=== PATIENT | female | born 1960 ===

== ENCOUNTER 2018-08-29 06:30 | Observation (INO) | payer OTHER ==
[2018-08-29 08:27] VITALS: BMI 28.3
[2018-08-29] MEDS ORDERED: Lactated Ringer's 1,000 ML IV ONE ×4 (08:52→18:31)
[2018-08-29] MEDS ORDERED: Propofol 10 mg/ml Inj (20 ML) ONE ×2 (14:47→17:23)
[2018-08-29] MEDS ORDERED: Succinylcholine Chloride 20 mg/ml Syr (5 ml) IV ONE (14:47)
[2018-08-29] MEDS ORDERED: Lidocaine 4% (Laryng-O-Jet) Kit MM ONE (14:48)
[2018-08-29] MEDS ORDERED: Absorbable Gelatin Sponge Size 12-7 ONE (14:49)
[2018-08-29] MEDS ORDERED: Lidocaine 1% Inj (20ml) ONE (14:49)
[2018-08-29] MEDS ORDERED: MethylPREDNISolone Depo 40 mg/ml Inj ONE (14:49)
[2018-08-29] MEDS ORDERED: Thrombin Topical 5,000 Int Units Spray Kit ONE (14:50)
[2018-08-29] MEDS ORDERED: Midazolam 2 MG/2 ML VIAL ONE (14:58)
[2018-08-29] MEDS ORDERED: Remifentanil 2 MG PDS IV ONE (14:58)
[2018-08-29] MEDS ORDERED: Tranexamic Acid 1,000 MG in Sodium Chloride 0.9% 100 ML IVPB ONE (16:30)
[2018-08-29] MEDS ORDERED: Dexamethasone 4 mg/1 ml ONE (17:31)
[2018-08-29] MEDS ORDERED: Vancomycin 1 g Inj IVPB ONE (18:45)
[2018-08-29] MEDS ORDERED: Liquid Adhesive TOP ONE ×2 (20:01→20:48)
[2018-08-29] MEDS ORDERED: cefTRIAXone (Rocephin) 1 gm Inj ONE (20:07)
[2018-08-29] MEDS ORDERED: cefTRIAXone (Rocephin) 1 gm Inj IVPB ONE (20:35)
[2018-08-29] MEDS ORDERED: HYDROmorphone 0.5 mg/0.5 ml ISec IVP PRN (21:14)
[2018-08-29] MEDS ORDERED: HYDROmorphone 0.5 mg/0.5 ml ISec ONE (21:14)
[2018-08-29] MEDS ORDERED: Dexamethasone 4 mg/1 ml IVP PRN (21:14)
[2018-08-29] MEDS ORDERED: Lactated Ringer's 1,000 ML IV SCH (21:15)
[2018-08-29] MEDS ORDERED: Oxycodone/Acetaminophen 5/325 mg Tab PO PRN (22:06)
--- NOTE | 2018-08-29 23:45 | CP.PCM.HP ---
History of Present Illness - History of Present Illness History of Present Illness: Orthopedist: Dr Marino Chief complaint: SOB/chest and back pain The patient was seen and examined in the Medical unit post surgery HPI: This is a 58 years old female with hx of HTN who came for an elective cervical disc surgery. She referred having pain to the back of the neck with numbness radiating down the right hand and the back. She referred that the MRI of the neck showed degenerative cervical disc disease. The surgery done was C4-5, C5-6; C6-7 anterior Discectomy and fusion. PMH: HTN; Back pain; Neck pain PSH: Cesarian section; Right shoulder surgery;Right Tibia ORIF SH: Never Smoked; No illegal drug use; No ETOH; FH: States: no family rodriguez Allergies: NKDA Medication: Gabapentin; [place]; Cyclobenzoprin Present on Admission - Present on Admission Any Indicators Present on Admission: No History of DVT/PE: No History of Uncontrolled Diabetes: No Urinary Catheter: No Decubitus Ulcer Present: No Review of Systems - Constitutional Constitutional: Headache. absent: Anorexia, Chills, Fatigue, Fever, Snoring - EENT Eyes: Spots in Vision, Other Visual Disturbances, Other. absent: Blurred Vision, Decreased Night Vision, Diplopia, Dry Eye, Pain Nose/Mouth/Throat: absent: Epistaxis, Nasal Congestion, Nasal Discharge, Sinus Pain, Sinus Pressure - Cardiovascular Cardiovascular: Chest Pain, Dyspnea. absent: Edema, Leg Edema - Respiratory Respiratory: Dyspnea. absent: Cough, Wheezing, Stridor - Gastrointestinal Gastrointestinal: absent: Constipation, Diarrhea, Nausea, Vomiting - Genitourinary Genitourinary: absent: Dysuria, Flank Pain, Urinary Frequency - Musculoskeletal Musculoskeletal: Back Pain, Neck Pain - Integumentary Integumentary: Pruritus, Rash, Skin Ulcer, Sores, Striae, Swelling - Neurological Neurological: Weakness. absent: Confusion, Dizziness, Headaches - Psychiatric Psychiatric: absent: Anxiety, Depression, Difficulty Concentrating, Panic Attacks, Other - Endocrine Endocrine: absent: Palpitations, Polydipsia, Polyphagia, Polyuria - Hematologic/Lymphatic Hematologic: absent: Easy Bleeding, Easy Bruising Past Patient History - Past Medical History & Family History Past Medical History?: Yes - Past Social History Smoking Status: Never Smoked Chewing Tobacco Use: No Cigar Use: No Alcohol: None Drugs: Denies Home Situation {Lives}: With Family - CARDIAC Hx Cardiac Disorders: Yes Hx Hypertension: Yes - PULMONARY Hx Respiratory Disorders: No - NEUROLOGICAL Hx Neurological Disorder: No - HEENT Hx HEENT Problems: No - RENAL Hx Chronic Kidney Disease: No - ENDOCRINE/METABOLIC Hx Endocrine Disorders: No - HEMATOLOGICAL/ONCOLOGICAL Hx Blood Disorders: No - INTEGUMENTARY Hx Dermatological Problems: No - MUSCULOSKELETAL/RHEUMATOLOGICAL Hx Musculoskeletal Disorders: Yes Hx Back Pain: Yes Other/Comment: NECK PAIN - GASTROINTESTINAL Hx Gastrointestinal Disorders: No - GENITOURINARY/GYNECOLOGICAL Hx Genitourinary Disorders: No - PSYCHIATRIC Hx Emotional Abuse: No Hx Physical Abuse: No - SURGICAL HISTORY Hx Surgeries: Yes Other/Comment: [id number];RIGHT SHOULDER SURGERY. right leg - ANESTHESIA Hx Anesthesia: Yes Hx Anesthesia Reactions: No Hx Malignant Hyperthermia: No Has any member of the family had a problem w/ anesthesia?: No Meds Allergies/Adverse Reactions: Allergies Allergy/AdvReac Type Severity Reaction Status Date / Time No Known Allergies Allergy Verified 08/29/18 08:28 Physical Exam - Constitutional Appears: No Acute Distress - Head Exam Additional comments: In Hard Neck collar - Eye Exam Eye Exam: EOMI, Normal appearance Pupil Exam: NORMAL ACCOMODATION, PERRL - ENT Exam ENT Exam: Mucous Membranes Moist, Normal Exam, Normal External Ear Exam - Neck Exam Neck exam: Negative for: Full Rom Additional comments: Range of motion is limited because of the Neck collar and post surgery pain - Respiratory Exam Respiratory Exam: Clear to Auscultation Bilateral. absent: Rales, Rhonchi, Wheezes - Cardiovascular Exam Cardiovascular Exam: REGULAR RHYTHM, RRR, +S1, +S2. absent: Gallop, JVD - GI/Abdominal Exam GI & Abdominal Exam: Normal Bowel Sounds, Soft. absent: Mass, Organomegaly - Rectal Exam Rectal Exam: Deferred - Extremities Exam Extremities exam: Positive for: full ROM, normal inspection. Negative for: calf tenderness, joint swelling, tenderness - Back Exam Back exam: NORMAL INSPECTION. absent: CVA tenderness (L), CVA tenderness (R) - Neurological Exam Neurological exam: Alert, CN II-XII Intact, Oriented x3, Reflexes Normal - Psychiatric Exam Psychiatric exam: Normal Affect, Normal Mood - Skin Skin Exam: Dry, Intact, Normal Color, Warm Results - Vital Signs Recent Vital Signs: Last Vital Signs Temp 98.3 F 08/29/18 23:26 Pulse 108 H 08/29/18 23:26 Resp 18 08/29/18 23:26 BP 136/84 08/29/18 23:26 Pulse Ox 97 08/29/18 23:26 - Labs Labs: Laboratory Results - last 24 hr 08/29/18 08/29/18 08:25 08:55 Blood Type O POSITIVE Blood Type Confirm O POSITIVE Antibody Screen Negative BBK History Checked No verified bt Assessment & Plan - Assessment and Plan (Free Text) Plan: 58 years old female with hx of HTN who came for an elective cervical disc surgery. She referred having pain to the back of the neck with numbness radiating down the right hand and the back. She referred that the MRI of the neck showed degenerative cervical disc disease. The surgery done was C4-5, C5-6; C6-7 anterior Discetomy and fusion. #. Degenerative Cervical Disc Disease s/p Cervical discetomy with fusion of C4- 5, C5-6, C6-7 - Orthopedic on consult - Pain management - OT/PT #. DVT Prophylaxis with SCD No Anticoagulant because of spinal surgery #. Code Status: Full Iam Box MD - Date & Time Date: 08/29/18 Time: 23:44
[2018-08-29] MEDS: Oxycodone/Acetaminophen 5/325 mg Tab PO PRN (23:54)
[2018-08-29] MEDS: Lactated Ringer's 1,000 ML IV SCH (23:59)
[2018-08-30 08:33] VITALS: BP 126/81; RESP 20; TEMP 98
[2018-08-30] MEDS: Lactated Ringer's 1,000 ML IV SCH (08:40)
[2018-08-30] MEDS: Oxycodone/Acetaminophen 5/325 mg Tab PO PRN (09:43)
--- NOTE | 2018-08-30 10:00 | CP.PCM.DIS ---
Provider - Provider Date of Admission: 08/29/18 22:00 Attending physician: Iam Box Primary care physician: None Consults: 08/30/18 07:00 Orthopedic Consult Routine Comment: Consulting Provider: Gino Marino Consulting Physician: Gino Marino Reason for Consult: Degenerative cervical disc disease s/p Discectomy and fusion Time Spent in preparation of Discharge (in minutes): 20 Hospital Course - Lab Results Lab Results: Most Recent Lab Values Blood Type O POSITIVE 08/29/18 08:25 Blood Type Confirm O POSITIVE 08/29/18 08:55 Antibody Screen Negative 08/29/18 08:25 BBK History Checked No verified bt 08/29/18 08:25 - Hospital Course Hospital Course: 58 years old female with hx of HTN admitted post elective cervical disc surgery with anterior fusion for pain control.She referreto having pain to the back of the neck with numbness radiating down the right hand and the back before surgery . SMRI of the neck showed degenerative cervical disc disease. She underewent C4-5, C5-6; C6-7 anterior Discectomy and fusion by Dr. Marino Today post op day 1 . Surgical dressing is clean, intact and dry. Still has pain to cervical area and not taking deep breaths PT consulted and patient ambulated Will d/c patient home with Percoset PRN for pain and incentive spirometry Follow up with Dr Marino in his office in 1 week Dx 1. s/p Cervical discectomy and anterior fusion ( C4-C5 , C5-C6 , C6-C7) 2. Hypertension- chronic Discharge Exam - Head Exam Head Exam: ATRAUMATIC, NORMAL INSPECTION, NORMOCEPHALIC - Eye Exam Eye Exam: EOMI, Normal appearance, PERRL Pupil Exam: NORMAL ACCOMODATION - ENT Exam ENT Exam: Mucous Membranes Moist, Normal Exam - Neck Exam Additional comments: anterior neck dressing in place , dry and intact Cervical collar in place - Respiratory Exam Respiratory Exam: Decreased Breath Sounds (bibasilar), Clear to PA & Lateral. absent: Rhonchi, Wheezes, Respiratory Distress - Cardiovascular Exam Cardiovascular Exam: REGULAR RHYTHM, RRR, +S1, +S2. absent: JVD - GI/Abdominal Exam GI & Abdominal Exam: Normal Bowel Sounds, Soft. absent: Distended, Guarding, Rebound, Tenderness - Rectal Exam Rectal Exam: Deferred - Extremities Exam Extremities exam: normal capillary refill, normal inspection, pedal pulses present - Back Exam Back exam: NORMAL INSPECTION - Neurological Exam Neurological exam: Alert, CN II-XII Intact, Oriented x3 - Psychiatric Exam Psychiatric exam: Normal Affect - Skin Skin Exam: Dry, Intact, Normal Color, Warm Discharge Plan - Follow Up Plan Condition: STABLE Disposition: HOME/ ROUTINE Patient education suggested?: Yes Instructions: Anterior Cervical Fusion (DC) Referrals: Gino Marino MD [Provisional Staff] -
[2018-08-30] MEDS ORDERED: Albuterol-Ipratrop 3 mg / 0.5 (3 ml) UD INH STA (10:02)
[2018-08-30 10:32] VITALS: PULSE 92
[2018-08-30 16:16] VITALS: O2SAT 94
--- NOTE | 2018-08-30 16:40 | RAD ---
Date of service: 08/29/2018 PROCEDURE: Intraoperative Fluoroscopy. HISTORY: SPINE IN OR FINDINGS: Fluoroscopic assistance was provided. Please refer to the operative report for additional details..
== END 2018-08-30 16:30 | disposition home or self-care (01) ==
LOC: H.OPSURG 06:30 → H.MEDSURG1 22:00
PROVIDERS: ADMIT Internal Medicine; ATTEND Internal Medicine
DX: M50.30 Other cervical disc degeneration, unspecified cervical region (principal); I10 Essential (primary) hypertension; M54.9 Dorsalgia, unspecified
CPT/HCPCS: 20937; 22551; 22552; 22845; 36415; 86850; 86900; 88304; 88311; 94640; 97162; C1713; G0378; G8978; G8979; J0131; J0690; J0696; J1030; J1100; J1170; J2001; J2250; J2405; J2704; J2765; J3010; J7030; J7120; Q4100